=== PATIENT | female | born 2000 | race Caucasian/White ===

== ENCOUNTER 2018-04-19 19:24 | Emergency (ER) | payer OTHER ==
[~2018-04-19] VITALS: Ht 165.1 cm; Wt 81.8 kg
[2018-04-19] MEDS ORDERED: PYRI1TAB5 PO (20:33)
[2018-04-19] MEDS ORDERED: MACR100C43 PO (20:33)
[2018-04-19 20:45] VITALS: BP 117/62
[2018-04-19] MEDS ORDERED: PHENAZOPYRIDINE 100 MG TAB PO ONE (20:45)
[2018-04-19] MEDS ORDERED: NITROFURANTOIN (MACROBID) 100 MG CAP PO ONE (20:45)
== END 2018-04-19 20:56 | disposition home or self-care (01) ==
LOC: M ED 19:24
DX: N39.0 Urinary tract infection, site not specified (principal)